=== PATIENT | male | born 1995 | race Caucasian/White ===

== ENCOUNTER 2022-04-04 22:04 | Emergency (ER) | payer SELFPAY ==
[~2022-04-04] VITALS: Ht 185.4 cm; Wt 88.0 kg
[2022-04-04 22:56] VITALS: BP 133/82
--- NOTE | 2022-04-04 23:16 | NUR ---
CALLED PT IN WAITING ROOM, NO ANSWER
--- NOTE | 2022-04-04 23:39 | NUR ---
CALLED PT IN WAITING ROOM, NO ANSWER
== END 2022-04-04 23:42 | disposition left against medical advice (07) ==
LOC: ER 22:10
DX: Z53.21 Procedure and treatment not carried out due to patient leaving prior to being seen by health care provider (principal)